=== PATIENT | male | born 1960 | race Two or more races ===

== ENCOUNTER 2021-03-03 16:16 | Emergency (ER) | payer OTHER ==
[~2021-03-03] VITALS: Ht 182.9 cm; Wt 86.2 kg
[2021-03-03] MEDS ORDERED: FENOFIBRATE50 MG PO (16:29)
[2021-03-03] MEDS ORDERED: INDERAL LA80 MG PO (16:30)
== END 2021-03-03 21:19 | disposition home or self-care (01) ==
LOC: ER 16:16
DX: K57.32 Diverticulitis of large intestine without perforation or abscess without bleeding (principal); Z03.818 Encounter for observation for suspected exposure to other biological agents ruled out

== ENCOUNTER 2021-04-27 09:30 | Inpatient (IN) | payer OTHER ==
[~2021-04-27] VITALS: Ht 182.9 cm; Wt 86.2 kg
[~2021-04-27 09:30] MED LIST: FENOFIBRATE50 MG PO; INDERAL LA80 MG PO
[2021-05-28] MEDS ORDERED: PRAVASTATIN SOD20 MG PO (10:26)
[2021-05-28] MEDS ORDERED: PEPCID AC20 MG PO (10:26)
[2021-05-28] MEDS ORDERED: FENOFIB PO (10:27)
[2021-05-28] MEDS ORDERED: PROPANOLOL PO (10:28)
[2021-05-28] MEDS ORDERED: ECOTRIN81 MG PO (10:29)
[2021-05-28] MEDS ORDERED: INTESTIN PO (10:29)
[2021-06-04] MEDS ORDERED: FENOFIBRATE160 MG (08:11)
[2021-06-04] MEDS ORDERED: PROPRANOLOL HCL40 MG (08:11)
[2021-06-04] MEDS ORDERED: CARBIDOPA-LEVO1 EA12 (08:11)
[2021-06-04] MEDS ORDERED: INTESTINEX680 M1 (08:12)
[2021-06-04] MEDS ORDERED: FENOFIBRATE67 MG (08:12)
== END 2021-06-05 11:09 | disposition home or self-care (01) | DRG 330 ==
LOC: SURH 06-03 09:00 → O/R 06-03 09:48 → SURH 06-03 16:52
PROVIDERS: ADMIT Colon & Rectal Surgery; ATTEND Colon & Rectal Surgery
PROC: 0DBP4ZZ Excision of Rectum, Percutaneous Endoscopic Approach (ICD-10-PCS; 2021-06-03)
PROC: 0DTN4ZZ Resection of Sigmoid Colon, Percutaneous Endoscopic Approach (ICD-10-PCS; principal; 2021-06-03 09:00)
DX: K57.30 Diverticulosis of large intestine without perforation or abscess without bleeding (principal); K92.1 Melena; R10.9 Unspecified abdominal pain; K21.9 Gastro-esophageal reflux disease without esophagitis; I11.9 Hypertensive heart disease without heart failure; F17.200 Nicotine dependence, unspecified, uncomplicated